=== PATIENT | female | born 1985 | race Caucasian/White ===

== ENCOUNTER 2024-03-15 15:58 | Emergency (ER) | payer MEDICAID ==
[~2024-03-15] VITALS: Ht 160 cm; Wt 49.9 kg
[2024-03-15] MEDS ORDERED: AMPH30TA3 (16:33)
[2024-03-15] MEDS ORDERED: ALPR0.5T8 (16:33)
[2024-03-15] MEDS ORDERED: MODA100T29 (16:33)
[2024-03-15] MEDS ORDERED: FLUO40CA8 (16:33)
[2024-03-15] MEDS ORDERED: DOXY100C5 (16:33)
[2024-03-16] MEDS ORDERED: KETOROLAC TROMETHAMINE 30 MG INJ ONE (03:11)
[2024-03-16] MEDS: KETOROLAC TROMETHAMINE 30 MG INJ IM ONE (03:20)
[2024-03-16 03:31] LABS: BASOPHILS # (AUTO) 0.1 K/UL (0.0-0.2); EOSINOPHILS # (AUTO) 0.2 K/uL (0.0-0.7); EOSINOPHILS % (AUTO) 2.9 % (0.0-7.0); HEMATOCRIT 39.9 % (31.2-41.9); HEMOGLOBIN 13.4 g/dL (10.9-14.3); LYMPHOCYTES # (AUTO) 2.3 K/uL (0.8-4.8); LYMPHOCYTES % (AUTO) 29.8 % (20.5-51.5); MEAN CORPUSCULAR HEMOGLOBIN 30.3 uug (24.7-32.8); MEAN CORPUSCULAR HGB CONC 34 g/dL (32.3-35.6); MONOCYTES % (AUTO) 12.4 % (0.0-11.0); NEUTROPHILS # (AUTO) 4.2 K/uL (1.8-8.9); NEUTROPHILS % (AUTO) 53.9 % (38.5-71.5); PLATELET COUNT (AUTO) 486 K/uL (179-408); RED BLOOD CELL COUNT(AUTO) 4.43 MIL/uL (3.63-4.92); RED CELL DISTRIBUTION WIDTH 12.8 % (12.3-17.7); WHITE BLOOD COUNT (AUTO) 7.8 K/uL (3.8-11.8)
[2024-03-16 03:41] LABS: DIFFERENTIAL COMMENT 1
[2024-03-16 03:59] LABS: ALBUMIN 3.4 g/dL (3.4-5.0); BILIRUBIN,TOTAL 0.5 mg/dL (0.2-1.0); CALCIUM 8.9 mg/dL (8.5-10.1); CREATININE 0.7 mg/dL (0.6-1.3); POTASSIUM 4.2 mmol/L (3.5-5.1)
[2024-03-16 04:17] LABS: *BLOOD, URINE NEGATIVE (NEGATIVE); *CLARITY,URINE SLIGHTLY CLOUDY (CLEAR); *COLOR,URINE YELLOW (YELLOW); *KETONES,URINE NEGATIVE (NEGATIVE); *PROTEIN,URINE TRACE (NEGATIVE); *UROBILINOGEN,URINE 0.2 E.U./dl (NORMAL); LEUKOCYTE ESTERASE ,URINE TRACE (NEGATIVE); NITRITE, URINE NEGATIVE (NEGATIVE); UGLUCOSE NEGATIVE (NEGATIVE)
[2024-03-16 04:18] LABS: *BILIRUBIN,URIN 1+ (NEGATIVE)
[2024-03-16 04:19] LABS: *URINE HCG, QUAL NEGATIVE (NEGATIVE)
[2024-03-16 04:26] LABS: RBC,URINE 0-3 /HPF (0-3)
[2024-03-16 04:27] LABS: *AMPHETAMINE, URINE POSITIVE (NEGATIVE); *BARBITURATE, URINE NEGATIVE (NEGATIVE); *BENZODIAZEPINE, URINE NEGATIVE (NEGATIVE); *CANNABINOID, URINE NEGATIVE (NEGATIVE); *COCCAINE, URINE NEGATIVE (NEGATIVE); *OPIATE, URINE NEGATIVE (NEGATIVE); *PHENCYCLIDINE SCREEN,URINE NEGATIVE (NEGATIVE); BACTERIA,URINE MANY /HPF (NONE SEEN); FENTANYL, URINE NEGATIVE (NEGATIVE); SQUAMOUS EPITHELIAL CELL,UR MANY /HPF (NONE SEEN)
[2024-03-16] MEDS ORDERED: KETO10TA2 PO (07:05)
[2024-03-16 07:50] VITALS: BP 99/50; TEMP 98; O2SAT 99
== END 2024-03-16 07:52 | disposition home or self-care (01) ==
LOC: ER 15:58
DX: R51.9 Headache, unspecified (principal)
CPT/HCPCS: 99285; 70450; 80053; 84703; 85025; 36415; 96372; 87086; 80307; 81001; J1885; A4606; A4663